=== PATIENT | female | born 1995 | race Caucasian/White ===

== ENCOUNTER 2017-09-01 11:07 | Emergency (ER) | payer SELFPAY ==
[~2017-09-01] VITALS: Ht 170.2 cm; Wt 109.0 kg
[2017-09-01 18:28] LABS: EOSINOPHILS % 1.2 % (0.0-5.0); HEMATOCRIT. 35.7 % (36.0-48.0); HEMOGLOBIN. 11.6 g/dL (12.0-16.0); LYMPHOCYTES % 28.4 % (20.0-50.0); MEAN CORPUSCULAR HEMOGLOBIN 25.8 pg (28.0-32.0); MEAN CORPUSCULAR VOLUME 79.3 fL (81.0-99.0); MONOCYTES % 6.1 % (2.0-8.0); NEUTROPHILS % 63.3 % (40.0-76.0); RED BLOOD CELL COUNT 4.49 mill/uL (4.2-5.4); RED CELL DISTRIBUTION WIDTH 14.9 % (11.6-14.6)
[2017-09-01 18:34] LABS: CHLORIDE 109 mEq/L (98-107)
[2017-09-01 18:38] LABS: CARBON DIOXIDE 26 mEq/L (21-32)
[2017-09-01 18:42] LABS: ETHANOL BLOOD < 10 mg/dL
[2017-09-01 19:09] LABS: MEAN PLATELET VOLUME 9.2 fl (7.4-10.4)
[2017-09-01 19:10] LABS: PLATELET 213 x1000/uL (130-400)
[2017-09-01 21:53] LABS: CLARITY URINE CLOUDY (CLEAR); COLOR URINE YELLOW (YELLOW); GLUCOSE URINE NEGATIVE (NEGATIVE); KETONES URINE NEGATIVE (NEGATIVE); LEUKOCYTE ESTERASE URINE 2+ (NEGATIVE); NITRITE URINE NEGATIVE (NEGATIVE); OCCULT BLOOD URINE TRACE (NEGATIVE); PH URINE 7.5 (4.5-8.0); PROTEIN URINE NEGATIVE (NEGATIVE); SPECIFIC GRAVITY URINE 1.018 (1.005-1.030); UROBILINOGEN URINE 0.2 E.U./dL (0.2-1.0)
[2017-09-01 22:16] LABS: *AMPHETAMINES SCREEN URINE NEGATIVE (NEGATIVE); *BARBITURATES SCREEN URINE NEGATIVE (NEGATIVE); *BENZODIAZEPINES SCREEN URINE NEGATIVE (NEGATIVE); *COCAINE SCREEN URINE NEGATIVE (NEGATIVE); CANNABINOID URINE SCREEN NEGATIVE (NEGATIVE); METHADONE URINE SCREEN NEGATIVE (NEGATIVE); OPIATES URINE SCREEN NEGATIVE (NEGATIVE); PHENCYCLIDINE URINE SCREEN NEGATIVE (NEGATIVE)
[2017-09-02] MEDS ORDERED: LORAZEPAM 2MG/ML CPJ IM ONE (12:45)
[2017-09-02] MEDS ORDERED: DIPHENHYDRAMINE 50MG/ML VIAL IM ONE (13:15)
[2017-09-02] MEDS ORDERED: OLANZAPINE 10MG TABLET ODT PO ONE (18:30)
[2017-09-02] MEDS ORDERED: LIDOCAINE HCL 1% 20ML VIAL (Pyxis) INJ MC NR (22:15)
[2017-09-02] MEDS ORDERED: CEFTRIAXONE SODIUM 1 G/VIAL IM NR (22:15)
[2017-09-03] MEDS ORDERED: OLANZAPINE 10 MG/VIAL IM ONE (08:30)
[2017-09-03] MEDS ORDERED: LORAZEPAM 2MG/ML CPJ IM ONE ×2 (08:30→16:30)
[2017-09-03 17:08] VITALS: BP 120/82
== END 2017-09-03 17:26 ==
LOC: ER 12:12 → EDBD 12:12 → ER 09-03 17:26
DX: F29 Unspecified psychosis not due to a substance or known physiological condition (principal); R41.82 Altered mental status, unspecified; N39.0 Urinary tract infection, site not specified; D50.9 Iron deficiency anemia, unspecified; R03.0 Elevated blood-pressure reading, without diagnosis of hypertension; Z78.1 Physical restraint status
CPT/HCPCS: 36415; 70450; 80053; 80305; 80307; 80329; 81001; 85025; 96372; 99285; G0482; J0696; J1200; J2060; J3490; A4315